=== PATIENT | female | born 1975 | race American Indian/Alaskan Native ===

== ENCOUNTER 2016-10-29 07:40 | Outpatient (CLI) | payer OTHER ==
--- NOTE | 2016-10-29 08:06 | Mammography Report ---
Bilateral mammogram: Compared to 03/20/15. CAD study utilized. Findings: Heterogeneous breast parenchyma bilaterally. Focal new density asymmetry upper right breast. No microcalcification. Normal axilla. Impression: New focal dense asymmetry upper right breast. Recommend spot mag and if necessary sonographic examination. BI-RADS CATEGORY: 0 = Needs additional imaging evaluation ACR BI-RADS MAMMOGRAPHIC CODES: 0 = Needs additional imaging evaluation; 1 = Negative; 2 = Benign; 3 = Probably benign; 4 = Suspicious; 5 = Malignant; 6 = Known biopsy-proven malignancy COMMENT: 1. Dense breast tissue, i.e., adenosis, fibrocystic changes, etc., may obscure an underlying neoplasm. 2. Approximately 10% of cancers are not detected with mammography. 3. A negative mammography report should not delay biopsy if a clinically suspicious mass is present. COMMENT: Patient follow-up letters are generated in [employer].
== END 2016-10-29 07:41 | disposition home or self-care (01) ==
LOC: MAMMO 07:40
PROVIDERS: ATTEND Obstetrics & Gynecology
DX: Z12.31 Encounter for screening mammogram for malignant neoplasm of breast (principal)
CPT/HCPCS: 77067; G0202

== ENCOUNTER 2016-11-17 08:13 | Outpatient (CLI) | payer OTHER ==
--- NOTE | 2016-11-17 08:58 | Mammography Report ---
Diagnostic right mammogram. History: Recall for asymmetry. Findings: On the spot compression image, there is effacement of the previously noted asymmetric density with no evidence of an underlying mass or architectural distortion. Similarly, the 90 degree view demonstrates no focal findings. Impression: No suspicious findings. BI-RADS code: 2. Recommendation: Annual screening.
== END 2016-11-17 08:14 | disposition home or self-care (01) ==
LOC: MAMMO 08:13
PROVIDERS: ATTEND Obstetrics & Gynecology
DX: R92.8 Other abnormal and inconclusive findings on diagnostic imaging of breast (principal)
CPT/HCPCS: G0206-RT

== ENCOUNTER 2020-07-02 07:22 | Outpatient (CLI) | payer OTHER ==
--- NOTE | 2020-07-02 14:42 | Mammography Report ---
DIGITAL SCREENING MAMMOGRAM WITH CAD, 07/02/2020 CLINICAL INFORMATION / INDICATION: Routine screening mammography. SCREENING MAMMOGRAM TECHNIQUE: Digital bilateral 2D mammography was obtained in the craniocaudal and mediolateral obliqu e projections. This examination was interpreted with the benefit of Computer-Aided Detection analysis . COMPARISON: 03/23/2018 and 05/20/2016. FINDINGS: Breast Density: The breasts are heterogeneously dense, which may obscure small masses. No dominant mass, suspicious calcifications, or architectural distortion in either breast. IMPRESSION: No mammographic evidence of malignancy. Follow up recommendation: Routine yearly BI-RADS Category 1: Negative. A "normal" or negative report should not discourage follow up or biopsy of a clinically significant f inding. A written summary of these findings will be mailed to the patient. The patient will be entered into a mammography reporting system which will generate a reminder letter for the patient's next appointmen t at the appropriate interval. The [employer] recommends yearly mammograms starting at age 40 and continuing as [place] as a woman is in good health. Breast MRI is recommended for women with an approximate 20-25% or greater lifetime risk of breast cancer, including women with a strong family history of breast or ova ronald cancer or who have been treated for Hodgkin's disease. Signer Name: Jacques Carlos MD Signed: 07/02/2020 2:38 PM Workstation Name: [id number]
== END 2020-07-02 07:23 | disposition home or self-care (01) ==
LOC: MAMMO 07:22
PROVIDERS: ATTEND Obstetrics & Gynecology
DX: Z12.31 Encounter for screening mammogram for malignant neoplasm of breast (principal)
CPT/HCPCS: 77067